=== PATIENT | male | born 1985 | race Two or more races ===

== ENCOUNTER 2016-09-23 18:00 | Inpatient (IN) | payer SELFPAY ==
[2016-09-23] VITALS (7 sets, daily range): BP systolic 81–130; BP diastolic 48–74
[~2016-09-23] VITALS: Ht 177.8 cm; Wt 68.1 kg
[2016-09-23 18:29] LABS: BASO % 1 % (0-3); EOS % 1 % (0-3); HEMOGLOBIN 11.6 g/dL (13.0-17.5); LYMPH # 1.4 x10^3/uL (1.0-4.8); LYMPH % 17 % (24-48); MEAN CORPUSCULAR HEMOGLOBIN 29 pg (25-35); MEAN CORPUSCULAR HGB CONC 34 g/dL (31-37); MEAN CORPUSCULAR VOLUME 86 fL (79-100); MONO % 5 % (0-9); NEUT % 76 % (31-73); PLATELET COUNT 218 x10^3/uL (140-400); RED BLOOD COUNT 3.98 x10^6/uL (4.30-5.70); RED CELL DISTRIBUTION WIDTH 13.3 % (11.5-14.5); WHITE BLOOD COUNT 8.2 x10^3/uL (4.0-11.0)
[2016-09-23] MEDS ORDERED: IV NORMAL SALINE 1000ML BAG 1,000 ML IV ONE ×2 (18:30)
[2016-09-23] MEDS ORDERED: ONDANSETRON PF 4 MG/2 ML VIAL. IV ONE (18:30)
[2016-09-23] MEDS: fentaNYL PF VIAL 100 MCG/2 ML VIAL IV PRN ×3 (18:39→20:41)
[2016-09-23 19:00] LABS: BILIRUBIN,URINE NEGATIVE (NEG); GLUCOSE,URINE >=1000 mg/dL (NEG); NITRITE,URINE NEGATIVE (NEG); PH,URINE 5.5; PROTEIN,URINE NEGATIVE (NEG-TRACE); UROBILINOGEN,URINE 0.2 mg/dL (0.2 mg/dL)
[2016-09-23] MEDS ORDERED: CONTRAST GIVEN MC PRN (19:00)
[2016-09-23 19:01] LABS: ALBUMIN 3.3 g/dL (3.4-5.0); ALBUMIN/GLOBULIN RATIO 0.8 (1.0-1.7); CALCIUM 8.5 mg/dL (8.5-10.1); GFR 38.7; TOTAL BILIRUBIN 0.4 mg/dL (0.2-1.0); TOTAL PROTEIN 7.5 g/dL (6.4-8.2)
[2016-09-23 19:08] LABS: BACTERIA,URINE FEW /HPF (0-FEW); RBC,URINE OCC /HPF (0-2); SQUAMOUS EPITHELIAL CELL,UR FEW /LPF
[2016-09-23 19:13] LABS: POTASSIUM 2.9 mmol/L (3.5-5.1)
[2016-09-23] MEDS ORDERED: IOHEXOL 300 MG/ML 75 ML VIAL IV ONE (19:15)
[2016-09-23] MEDS ORDERED: POTASSIUM CHLORIDE 10MEQ 100 ML IV PRN ×3 (19:15)
[2016-09-23] MEDS ORDERED: INSULIN REGULAR VIAL 150 UNIT in 0.9 % SODIUM CHLORIDE 150ML 150 ML IV PRN (19:15)
[2016-09-23] MEDS ORDERED: IV DEXTROSE 5 %-0.45 % NACL 1,000 ML IV SCH (19:18)
[2016-09-23] MEDS ORDERED: INSULIN,REGULAR 150 UNIT DRIP 150 ML IV ONE (19:30)
[2016-09-23] MEDS: IV NORMAL SALINE 1000ML BAG 1,000 ML IV SCH ×2 (19:58→20:50)
[2016-09-23] MEDS ORDERED: PIPERACILLIN/TAZOBACTAM 4.5 GM in IV NORMAL SALINE 100ML 100 ML IV ONE (20:15)
[2016-09-23] MEDS ORDERED: MORPHINE SULFATE 2 MG/ML DISP.SYRIN. IV PRN (20:15)
[2016-09-23] MEDS ORDERED: ONDANSETRON PF 4 MG/2 ML VIAL. IV PRN (20:15)
[2016-09-23] MEDS ORDERED: ACETAMINOPHEN 325 MG TABLET. PO PRN (20:15)
[2016-09-23] MEDS: IV DEXTROSE 5% - 0.9 % NACL 1,000 ML IV SCH (21:00)
[2016-09-23 21:45] LABS: CALCIUM 7.9 mg/dL (8.5-10.1); CREATININE 1.6 mg/dL (0.7-1.3)
[2016-09-23 21:47] LABS: POTASSIUM 2.7 mmol/L (3.5-5.1)
[2016-09-23] MEDS: POTASSIUM CHLORIDE 10MEQ 100 ML IV SCH ×2 (22:25→23:20)
[2016-09-23 23:25] LABS: CALCIUM 7.8 mg/dL (8.5-10.1); CREATININE 1.7 mg/dL (0.7-1.3); GFR 46.6
[2016-09-23 23:27] LABS: POTASSIUM 2.8 mmol/L (3.5-5.1)
[2016-09-24] VITALS (8 sets, daily range): BP systolic 81–120; BP diastolic 45–77
[2016-09-24] MEDS: POTASSIUM CHLORIDE 10MEQ 100 ML IV SCH ×4 (00:15→03:23)
--- NOTE | 2016-09-24 00:42 | PHYS DOC ---
Past Medical History Past Medical History: Diabetes-Type I Past Surgical History: No Surgical History Alcohol Use: None Drug Use: None Adult General Chief Complaint Chief Complaint: HYPERGLYCEMIA HPI HPI Patient is a 31 year old male who presents with hyperglycemia and vomiting. The patient reports onset of symptoms this morning. Reports 3 episodes of vomiting, polyuria and polydipsia. Reports mid abdominal pain. Denies fevers or chills, hematemesis, diarrhea or constipation, dysuria or hematuria. He has history of type 1 diabetes, takes Lantus and Humalog. Reports compliance with insulin regimen. Blood glucose usually runs in mid 200s. Denies history of abdominal surgeries. His PCP is at a diabetic clinic. Patient is Wolof speaking, accompanied by brother who is providing history. Review of Systems Review of Systems Constitutional: Denies fever or chills Eyes: Denies change in visual acuity HENT: Denies nasal congestion or sore throat Respiratory: Denies cough or shortness of breath Cardiovascular: Denies chest pain GI: Reports abdominal pain, nausea, vomiting, denies bloody stools or diarrhea : Denies dysuria or hematuria Musculoskeletal: Denies back pain or joint pain Integument: Denies rash or skin lesions Neurologic: Denies headache, focal weakness or sensory changes Endocrine: Reports polyuria & polydipsia Current Medications Current Medications Current Medications Medications (Trade) Dose Ordered Sig/Ora Start Time Stop Time Status Last Admin Dose Admin Dextrose/Sodium Chloride 1,000 ml @ 250 mls/hr Q4H 09/23/16 19:18 09/23/16 21:10 DC Fentanyl Citrate (Fentanyl 2ml Vial) 50 mcg PRN Q15MIN PRN 09/23/16 18:30 09/24/16 18:29 09/23/16 20:41 50 MCG Info (Do NOT chart on this entry -- for MONITORING) 1 each PRN DAILY PRN 09/23/16 19:00 09/25/16 18:59 Insulin Human Regular 150 unit/ Sodium Chloride 151.5 ml @ 0 mls/hr CONT PRN PRN 09/23/16 19:15 Iohexol (Omnipaque 300 Mg/ml) 75 ml 1X ONCE 09/23/16 19:15 09/23/16 19:16 DC Ondansetron HCl (Zofran) 4 mg 1X ONCE 09/23/16 18:30 09/23/16 18:31 DC 09/23/16 18:38 4 MG Potassium Chloride 100 ml @ 100 mls/hr PRN Q1HR PRN 09/23/16 19:15 Sodium Chloride 1,000 ml @ 250 mls/hr Q4H 09/23/16 19:18 09/23/16 21:10 DC 09/23/16 19:58 250 MLS/HR Allergies Allergies Allergies Coded Allergies Type Severity Reaction Last Updated Verified No Known Drug Allergies 09/23/16 No Physical Exam Physical Exam Constitutional: Well developed, well nourished, appears ill HENT: Normocephalic, atraumatic, bilateral external ears normal, oropharynx dry , nose normal. Eyes: conjunctiva normal, no discharge. Neck: supple, no stridor. Cardiovascular: RRR, no murmurs, no edema. Lungs & Thorax: LCTAB, no wheezing, no respiratory distress. Abdomen: soft, generalized abdominal tenderness without rebound or guarding, no masses or pulsatile masses, nondistended. Skin: Warm, dry, no erythema, no rash. Back: No tenderness. Extremities: No tenderness, no edema. Neurologic: Alert and oriented X 3, no focal deficits noted. Psychologic: Affect normal, judgement normal, mood normal. Current Patient Data Vital Signs Vital Signs Date Time Temp Pulse Resp B/P (MAP) Pulse Ox O2 Delivery O2 Flow Rate FiO2 09/23/16 19:11 78 13 113/64 (80) 100 Room Air 09/23/16 18:10 97.8 97.8 Lab Values Laboratory Tests Test 09/23/16 18:12 09/23/16 18:20 09/23/16 18:50 Glucose (Fingerstick) 512 mg/dL (70-99) *H White Blood Count 8.2 x10^3/uL (4.0-11.0) Red Blood Count 3.98 x10^6/uL (4.30-5.70) L Hemoglobin 11.6 g/dL (13.0-17.5) L Hematocrit 34.0 % (39.0-53.0) L Mean Corpuscular Volume 86 fL (79-100) Mean Corpuscular Hemoglobin 29 pg (25-35) Mean Corpuscular Hemoglobin Concent 34 g/dL (31-37) Red Cell Distribution Width 13.3 % (11.5-14.5) Platelet Count 218 x10^3/uL (140-400) Neutrophils (%) (Auto) 76 % (31-73) H Lymphocytes (%) (Auto) 17 % (24-48) L Monocytes (%) (Auto) 5 % (0-9) Eosinophils (%) (Auto) 1 % (0-3) Basophils (%) (Auto) 1 % (0-3) Neutrophils # (Auto) 6.3 x10^3uL (1.8-7.7) Lymphocytes # (Auto) 1.4 x10^3/uL (1.0-4.8) Monocytes # (Auto) 0.4 x10^3/uL (0.0-1.1) Eosinophils # (Auto) 0.1 x10^3/uL (0.0-0.7) Basophils # (Auto) 0.0 x10^3/uL (0.0-0.2) Sodium Level 134 mmol/L (136-145) L Potassium Level 2.9 mmol/L (3.5-5.1) *L Chloride Level 96 mmol/L (98-107) L Carbon Dioxide Level 16 mmol/L (21-32) L Anion Gap 22 (6-14) H Blood Urea Nitrogen 17 mg/dL (8-26) Creatinine 2.0 mg/dL (0.7-1.3) H Estimated GFR (Cockcroft-Gault) 38.7 BUN/Creatinine Ratio 9 (6-20) Glucose Level 506 mg/dL (70-99) *H Calcium Level 8.5 mg/dL (8.5-10.1) Phosphorus Level 3.9 mg/dL (2.6-4.7) Magnesium Level 1.9 mg/dL (1.8-2.4) Total Bilirubin 0.4 mg/dL (0.2-1.0) Aspartate Amino Transferase (AST) 8 U/L (15-37) L Alanine Aminotransferase (ALT) 18 U/L (16-63) Alkaline Phosphatase 120 U/L (46-116) H Troponin I Quantitative < 0.017 ng/mL (0.000-0.055) Total Protein 7.5 g/dL (6.4-8.2) Albumin 3.3 g/dL (3.4-5.0) L Albumin/Globulin Ratio 0.8 (1.0-1.7) L Lipase 341 U/L (73-393) Urine Collection Type Unknown Urine Color Straw Urine Clarity Clear Urine pH 5.5 Urine Specific [place] 1.025 Urine Protein Negative mg/dL (NEG-TRACE) Urine Glucose (UA) >=1000 mg/dL (NEG) Urine Ketones (Stick) >=80 mg/dL (NEG) Urine Blood Negative (NEG) Urine Nitrite Negative (NEG) Urine Bilirubin Negative (NEG) Urine Urobilinogen Dipstick 0.2 mg/dL (0.2 mg/dL) Urine Leukocyte Esterase Negative (NEG) Urine RBC Occ /HPF (0-2) Urine WBC 1-4 /HPF (0-4) Urine Squamous Epithelial Cells Few /LPF Urine Bacteria Few /HPF (0-FEW) Urine Mucus Slight /LPF Laboratory Tests 09/23/16 18:20 Laboratory Tests 09/23/16 18:20 EKG EKG interpreted by me: NSR rate 88, no acute ST/T wave changes, QTc prolonged 490 ms, no ectopy.[] Radiology/Procedures Radiology/Procedures [] Course & Med Decision Making Course & Med Decision Making Pertinent Labs and Imaging studies reviewed. (See chart for details) The patient presents with hyperglycemia. Gave IV fluids and Zofran. Obtained labs, UA, and EKG. Patient found to have diabetic ketoacidosis with hyperglycemia, anion gap acidosis, ketonuria. Received total of 2 L of normal saline. Initiated EKG protocol including insulin drip and potassium replacement. Recommended admission to the hospital for ongoing treatment. The patient agreed with plan of care. Discussed with Dr. Conley who agrees to admit to inpatient status to the ICU. The patient is being admitted in guarded condition. Critical care time: 35 minutes [] Dragon Disclaimer Dragon Disclaimer This electronic medical record was generated, in whole or in part, using a voice recognition dictation system. Departure Departure Impression: Primary Impression: Diabetic ketoacidosis Additional Impressions: Nausea and vomiting Hypokalemia Disposition: ADMITTED INPATIENT Admitting Physician: Errol Conley Condition: GUARDED Problem Qualifiers JANICE OLIVARES MD Sep 24, 2016 00:41
[2016-09-24] MEDS ORDERED: INSULIN DETEMIR 300 UNITS/3 ML INSULN.PEN. SQ ONE (00:45)
[2016-09-24] MEDS: IV DEXTROSE 5% - 0.9 % NACL 1,000 ML IV SCH ×2 (01:11→05:15)
[2016-09-24 01:30] LABS: CALCIUM 7.5 mg/dL (8.5-10.1); CREATININE 1.5 mg/dL (0.7-1.3); GFR 53.9; POTASSIUM 3.1 mmol/L (3.5-5.1)
[2016-09-24 01:34] LABS: MAGNESIUM 1.6 mg/dL (1.8-2.4); PHOSPHORUS 2.6 mg/dL (2.6-4.7)
[2016-09-24] MEDS ORDERED: MAGNESIUM SULFATE 4GM 100 ML IV ONE (02:30)
[2016-09-24] MEDS ORDERED: SODIUM PHOSPHATE 20 MMOL in IV DEXTROSE 5% 250 ML IV ONE (02:30)
[2016-09-24 03:48] LABS: CALCIUM 7.3 mg/dL (8.5-10.1); CREATININE 1.4 mg/dL (0.7-1.3); GFR 58.4; POTASSIUM 3.2 mmol/L (3.5-5.1)
--- NOTE | 2016-09-24 04:41 | ACF ---
Admission Forms Criteria GENERAL ADMISSION CRITERIA (Place 'X' for any and all applicable criteria): Admission is indicated for ANY ONE of the following: [ ]I. Hemodynamic instability as indicated by ANY ONE of the following(1)(2) (3)(4)(5): [ ]a) Vital sign abnormality not readily corrected by appropriate treatment within 12 to 24 hours indicated by ANY ONE of the following: [ ]i) Hypotension [ ]ii) Symptomatic Tachycardia unresponsive to treatment (eg , analgesia, fluids, sedation as indicated) [ ]iii) Orthostatic vital sign changes unresponsive to treatment (eg, fluids) [ ]b) Vital sign abnormality that is severe indicated by ANY ONE of the following: [ ]i) Inadequate perfusion indicated by ANY ONE of the following: [ ]1) Lactic acidosis (greater than 2 mmol/L) [ ]2) New abnormal capillary refill (greater than 3 seconds) [ ]3) Other metabolic acidosis (arterial pH less than 7.35) not otherwise explained [ ]4) Reduced urine output [ ]5) Altered mental status [ ]6) Myocardial Ischemia [ ]v) Mean arterial pressure[A] less than 60 mm Hg [ ]vi) Mean arterial pressure[A] less than 70 mm Hg after 30 minutes of appropriate treatment (eg, fluid resuscitation) [ ]vii) IV inotropic or vasopressor medication required to maintain adequate blood pressure or perfusion [ ]viii) Sustained heart rate greater than 120 beats per minute in adult or child 6 years or older[B]] [ ]II. Hypertension requiring inpatient treatment as indicated by ANY ONE of the following(6)(7)(8): [ ]a) SBP greater than 220 mm Hg or DBP greater than 120 mm Hg despite treatment [ ]b) SBP greater than 140 mm Hg or DBP greater than 100 mm Hg with evidence of acute end organ damage as indicated by ANY ONE of the following: [ ]i) Encephalopathy [ ]ii) Acute renal failure as indicated by new onset of ANY ONE of the following(9)(10)(11)(12)(13): [ ]1) A 3-fold rise in serum creatinine from baseline [ ]2) Serum creatinine greater than 4 mg/dL ( 354 micromoles/L) with acute rise greater than 0.5 mg/dL (44.2 micromoles/L) [ ]3) Reduction of more than 75% in estimated glomerular filtration rate from baseline [ ]4) Estimated glomerular filtration rate less than 35 mL/min/1.73m2 (0.59 mL/sec/1.73m2) in child up to 18 years of age [ ]5) Cessation of urine output indicated by ALL of the following: [ ]A. Adequate volume status [ ]B. Inadequate urine output as indicated by ANY ONE of the following: [ ]a. Urine output less than 0.3 mL/kg/hr for 24 hours [ ]b. Anuria (urine output less than 0.1 mL/kg/hr) for 12 hours [ ]iii) Aortic dissection [ ]iv) Myocardial ischemia [ ]v) Left ventricular heart failure [ ]vi) Retinal hemorrhage [ ]vii) Other significant finding [ ]c) Hypertension in child requiring inpatient treatment as indicated by ALL of the following(14)(15)(16): [ ]i) Outpatient treatment not effective, not available, or not appropriate [ ]ii) SBP or DBP greater than 95th percentile for age [ ]iii) Evidence of acute end organ damage as indicated by ANY ONE of the following: [ ]1) Altered mental status [ ]2) Acute renal failure as indicated by new onset of ANY ONE of the following(9)(10)(11)(12)(13): [ ]A. A 3-fold rise in serum creatinine from baseline [ ]B. Serum creatinine greater than 4 mg/dL (354 micromoles/L) with acute rise greater than 0.5 mg/dL (44.2 micromoles/L) [ ]C. Reduction of more than 75% in estimated glomerular filtration rate from baseline [ ]D. Estimated glomerular filtration rate less than 35 mL/min/1.73m2 (0.59 mL/sec/1.73m2)in child up to 18 years of age [ ]E. Cessation of urine output indicated by ALL of the following: [ ]a. Adequate volume status [ ]b. Inadequate urine output as indicated by ANY ONE of the following: [ ]1) Urine output less than 0.3 mL/kg/hr for 24 hours [ ]2) Anuria (urine output less than 0.1 mL/kg/hr) for 12 hours [ ]3) Severe headache [ ]4) Visual disturbance [ ]5) Retinal hemorrhage [ ]6) Other significant finding [ ]III. Acute cardiac or peripheral ischemia as indicated by ANY ONE of the following: [ ]a) Acute coronary syndrome(17)(18) [ ]b) Acute peripheral ischemia (eg, pulseless, cool, mottled, or cyanotic extremity)(19) [ ]IV. Cardiac arrhythmias or findings of immediate concern indicated by ANY ONE of the following(20)(21): [ ]a) Heart rhythms that are inherently dangerous or unstable indicated by ANY ONE of the following(22)(23)(24): [ ]i) Resuscitated ventricular fibrillation or cardiac arrest [ ]ii) Ventricular escape rhythm [ ]iii) Sustained ventricular tachycardia (30 seconds or more of ventricular rhythm at greater than 100 beats per minute) [ ]iv) Nonsustained ventricular tachycardia and ANY ONE of the following: [ ]1) Suspected cardiac ischemia as cause or consequence of ventricular tachycardia [ ]2) In setting of acute myocarditis [ ]b) Unstable cardiac conduction defects indicated by ANY ONE of the following(24)(25)(26): [ ]i) Type II second-degree atrioventricular block [ ]ii) Third-degree atrioventricular block [ ]iii) New-onset left bundle branch block with suspected myocardial ischemia [ ]c) Any heart rhythm and ANY ONE of the following(22)(23)(27)(28)( 29): [ ] i) Continuous long-term ECG monitoring needed (eg, initiation of drug requiring monitoring for more than 24 hours) [ ] ii) Patient has automatic implanted cardioverter defibrillator that is repeatedly firing, malfunctioning, or in need of immediate adjustment of settings beyond the scope of ambulatory or observation care. [ ]d) Heart rhythms of concern due to ANY ONE of the following: [ ]i) Hypotension [ ]ii) Respiratory distress [ ]iii) Association with other significant symptoms (eg, bradycardia with syncope or ongoing dizziness, supraventricular tachycardia with chest pain) (27)(28) (30) [ ] V. Severe heart failure as indicated by ANY ONE of the following ( 31)(32): [ ]a) Respiratory distress [ ]b) Hypotension [ ]c) Anasarca (refractory to outpatient therapy) [ ]d) Cardiac arrhythmias of immediate concern [ ]e) Myocardial ischemia [ ]. Respiratory abnormalities, including ANY ONE of the following(33)(34) (35)(36): [ ]a) Respiratory rate greater than 30 breaths per minute unresponsive to treatment [A] [ ]b) New saturation of arterial oxygen less than 90% [ ]c) New partial pressure of carbon dioxide greater than 44 mm Hg ( 5.9 kPa) [ ]d) Supplemental oxygen or respiratory treatments needed that are new or not performable at other levels of care [ ]e) New-onset cyanosis [ ]f) Inability to protect airway [ ]g) Chronic lung disease with severe deterioration (not responsive to emergency and observation care treatment as appropriate) as indicated by ANY ONE of the following(34)(36 ): [ ]i) SaO2 5% below baseline in patient with chronic hypoxemia [ ]ii) New requirement for supplemental oxygen to keep SaO2 at baseline or acceptable level [ ]iii) Required supplemental oxygen performable only in acute inpatient setting [ ]iv) Severe airflow or ventilation abnormalities [ ]v) Previously mobile patient unable to walk between rooms [ ]vi Inability to eat or sleep due to dyspnea [ ]vii) Rapid rate of exacerbation onset [ ]viii) Altered mental status ]VII. Severe airflow or ventilation abnormalities (not responsive to emergency and observation care treatment as appropriate) as indicated by ANY ONE of the following(33)(34)(35)(37): [ ]a) PCO2 greater than 42 mm Hg (5.6 kPa) and pH less than 7.35 (new ) [ ]b) Documented PCO2 increased more than 5 mm Hg (0.7 kPa) from disease baseline [ ]c) Airflow measurements [B] less than 60% of previous best or predicted (eg, peak expiratory flow rate less than 300 L/minute) despite intensive emergent treatment [C] [ ]d) Required respiratory treatments that are performable only in acute inpatient setting [ ]VIII. Impending or actual respiratory arrest ( Also use Respiratory Failure GRG for severe respiratory disease and long-term mechanical ventilation patients) [ ]IX. Neurologic abnormalities, including ANY ONE of the following: [ ]a) New findings that suggest ANY ONE of the following: [ ]i) ROLL CONTOUR GRINDER infection(38) [ ]ii) Cerebral bleeding, ischemia, or vasospasm(39)(40) [ ]iii) Increased intracranial pressure, hydrocephalus, or cerebral edema(41)(42)(43) [ ]iv) Spinal cord injury(44) [ ]b) Uncontrolled seizures(45) [ ]c) New-onset coma (eg, Sharad coma scale score less than 9) or unexplained abnormal mental status (eg, Sharad coma scale score less than 14) [D](41)(46)(47) [ ]X. New-onset severe neurologic findings requiring inpatient care; examples include(42)(48)(49): [ ]a) Papilledema [ ]b) Cerebral edema [ ]c) Mass effect on CT scan [ ]XI. Suspected acute intra-abdominal process with peritoneal signs, abdominal mass, or similar findings (50)(51)(52) [X ]XII. Severe physiologic disorder remaining after emergency or observation level care (as appropriate) as indicated by ANY ONE of the following (53): [ ]a) Significant dehydration [X ]b) Diabetic ketoacidosis [ ]c) Hyperglycemic hyperosmolar state (eg, osmolality greater than 320 mOsm/kg (mmol/kg) [ ]d) Hypoglycemia [ ]e) Other (new) acid-base disorder with pH less than 7.35 or greater than 7.5(54) [ ]f) Thyroid storm (55) [ ]g) Myxedema coma (55) [ ]XIII. Abdominal abnormalities with ANY ONE of the following(56)(57): [ ]a) Absent bowel sounds with complete ileus [ ]b) Signs of intestinal obstruction or peritonitis [E] [ ]c) Nausea and vomiting that cannot be controlled with outpatient or observation care [ ]XIV. Acute renal failure as indicated by new onset of ANY ONE of the following(9)(10)(11)(12)(13): [ ]a) A 3-fold rise in serum creatinine from baseline [ ]b) Serum creatinine greater than 4 mg/dL (354 micromoles/L) with acute rise greater than 0.5 mg/dL (44.2 micromoles/L) [ ]c) Reduction of more than 75% in estimated glomerular filtration rate from baseline [ ]d) Estimated glomerular filtration rate less than 35 mL/min/ 1.73m2 (0.59 mL/sec/1.73m2) in child up to 18 years of age [ ]e) Cessation of urine output indicated by ALL of the following: [ ]i) Adequate volume status [ ]ii) Inadequate urine output as indicated by ANY ONE of the following: [ ]1) Urine output less than 0.3 mL/kg/hr for 24 hours [ ]2) Anuria (urine output less than 0.1 mL/kg/hr) for 12 hours [ ]XV. Significant uremic complications as indicated by ANY ONE of the following(58)(59)(60): [ ]a) Outpatient therapy is ineffective or not feasible for ANY ONE of the following: [ ]i) Severe heart failure [ ]ii) Severehypertension [ ]iii) Pleural effusion [ ]iv) Pericarditis or pericardial effusion [ ]b) Cardiac arrhythmias of immediate concern [ ]c) Intractable nausea or vomiting [ ]d) Recurrent seizures [ ]e) Encephalopathy [ ]f) Bleeding abnormalities (eg, platelet dysfunction) with active (eg, gastrointestinal) bleeding [ ]g) Dialysis indicated before long-term access or ambulatory arrangements can be made [ ]h) Significant metabolic or electrolyte abnormalities (eg, severe acidosis or hyperkalemia) [ ]XVI. High fever or other high-risk infection situation as indicated by ANY ONE of the following(61)(62)(63)(64): [ ]a) Outpatient and observation care antimicrobial treatment unavailable, not effective, or not appropriate [ ]b) Documented bacteremia [ ]c) Temperature greater than 40.5 degrees C (104.9 degrees F) ( oral) [ ]d) Temperature greater than 39.5 degrees C (103.1 degrees F) ( oral) or less than 36 degrees C (96.8 degrees F) (rectal) that does not respond to e treatment and observation care [ ] XVII. Temperature less than 95 degrees F (35 degrees C)(rectal)(65) [ ] XVIII. Severe nutritional abnormalities as indicated by ALL of the following (66)(67): [ ]a) Inability to tolerate or establish sufficient oral or other enteral nutrition in outpatient setting [ ]b) Parenteral nutrition regimen need that must be implemented on inpatient basis [ ] XIX. Severe electrolyte abnormalities indicated by ALL of the following(68) (69)(70): [ ]a) Electrolytes and associated findings are not as expected for patient baseline or acceptable treatment effects. [ ]b) Severe abnormalities indicated by ANY ONE of the following: [ ]i) Sodium less than 130 mEq/L (mmol/L) (new) [ ]ii)Sodium less than 135 mEq/L (mmol/L) with ANY ONE of the following: [ ]1) Uncorrectable (to near normal or chronic baseline) after trial of outpatient and emergency treatment [ ]2) Altered mental status [ ]3) Seizures [ ]4) Severe medical etiology requiring inpatient management (eg, heart failure, hypovolemia) [ ]iii) Sodium greater than 155 mEq/L (mmol/L) [ ]iv) Sodium greater than 150 mEq/L (mmol/L) with ANY ONE of the following: [ ]1) Uncorrectable (to near normal or chronic baseline) with outpatient and emergency treatment [ ]2) Altered mental status [ ]3) Seizures [ ]4) Severe medical etiology (eg, hypovolemia, diabetes insipidus) [ ]v) Potassium less than 2.5 mEq/L (mmol/L) despite outpatient and emergency treatment [ ]vi) Potassium less than 3 mEq/L (mmol/L) with ANY ONE of the following: [ ]1) Weakness [ ]2) Cardiac abnormality (eg, arrhythmia, conduction disturbance) [ ]3) Cardiac ischemia [ ]4) Ileus [ ]5) Ongoing medical cause requiring inpatient management (eg, acute renal wasting or SIADH) [ ]6) Other severe symptoms [ ]vii) Potassium greater than 6.5 mEq/L (mmol/L) [ ]viii) Potassium greater than 5 mEq/L (mmol/L) with ANY ONE of the following: [ ]1) Uncorrectable (to near normal or chronic baseline) with outpatient and emergency treatment [ ]2) Severe ECG findings [F] [ ]3) Acute worsening of renal failure (creatinine greater than 2.5 mg/dL (221 micromoles/L) or significant elevation for age and size) [ ]4) Severe weakness [ ]5) Severe medical etiology (eg, hemolysis, infection, drug overdose) [ ]ix) Calcium less than 7 mg/dL (1.75 mmol/L) despite outpatient and emergency treatment (72) [ ]x) Calcium less than 8 mg/dL (2 mmol/L) with significant symptoms or findings; examples include(72): [ ]1) Altered mental status [ ]2) Muscle spasms [ ]3) Seizures [ ]4) Breathing difficulty [ ]5) Cardiac abnormality (eg, arrhythmia or conduction disturbance) [ ]xi) Calcium greater than 14 mg/dL (3.5 mmol/L)(72) [ ]xii) Calcium greater than 12 mg/dL (3 mmol/L) with ANY ONE of the following(72): [ ]1) Uncorrectable (to near normal or chronic baseline) with outpatient and emergency treatment [ ]2) Significant dehydration or hypovolemia as indicated by ALL of the following(70)(73)(74): [ ]A. Not resolved with initial treatments [ ]B. Clinically significant dehydration as indicated by ANY ONE of the following: [ ]a. Vomiting refractory to outpatient treatment (ie, precluding oral rehydration) [ ]b. Inability to drink [ ]c. Hypernatremia or other electrolyte abnormality unable to be corrected with outpatient and emergency treatment [ ]d. Failure to remain hydrated with outpatient therapy [ ]e. Reduced urine output [ ]f. Hypotension [ ]g. Serious cause for dehydration requiring acute hospitalization (eg, bowel obstruction, increased intracranial pressure, infectious cause) [ ]h. Child with ANY ONE of the following(75): [ ]1) Severe abdominal tenderness [ ]2) Adequate care not available at home [ ]3) Severe dehydration ( greater than 9% loss of body weight) [ ]4) Significant symptoms or findings; examples include: [ ]A. Altered mental status [ ]B. Cardiac abnormality (eg, arrhythmia, conduction disturbance) [ ]C. Malignant etiology requiring inpatient treatment [ ]xiii) Phosphorus less than 1 mg/dL (0.32 mmol/L) [ ]xiv) Phosphorus less than 1.5 mg/dL (0.48 mmol/L) with ANY ONE of the following: [ ]1) Patient unresponsive to outpatient and emergency treatment [ ]2) Significant symptoms or findings; examples include: [ ]A. Weakness [ ]B. Altered mental status [ ]C. Breathing difficulty [ ]D. Seizures [ ]E. Rhabdomyolysis [ ]xv) Phosphorus greater than 10 mg/dL (3.2 mmol/L) [ ]xvi) Phosphorus greater than 4.5 mg/dL (1.45 mmol/L) (new) with ANY ONE of the following: [ ]1) Severe medical etiology (eg, crush injury, acute renal failure) [ ]2) Associated hypocalcemia with significant findings; examples include: [ ]A. Neurologic symptoms [ ]B. Altered mental status [ ]C. Muscle spasms [ ]D. Seizures [ ]E. Breathing difficulty [ ]F. Cardiac abnormality (eg, arrhythmia, conduction disturbance) [ ]xvii) Magnesium less than 1 mg/dL (0.41 mmol/L) [ ]xviii) Magnesium less than 1.5 mg/dL (0.62 mmol/L) with ANY ONE of the following: [ ]1) Patient unresponsive to outpatient and emergency treatment [ ]2) Associated hypocalcemia with significant findings; examples include: [ ]A. Altered mental status [ ]B. Muscle spasms [ ]C. Seizures [ ]D. Breathing difficulty [ ]E. Cardiac abnormality (eg, arrhythmia , conduction disturbance) [ ]3) Associated hypokalemia (potassium less than 3 mEq/L (mmol/L)) with risk of arrhythmia [ ]xix) Magnesium greater than 4 mEq/L (2 mmol/L) [ ]xx) Magnesium greater than 2.5 mEq/L (1.25 mmol/L) with significant symptoms or findings; examples include: [ ]1) Weakness [ ]2) Altered mental status [ ]3) Cardiac abnormality (eg, arrhythmia, conduction disturbance) [ ]4) Breathing difficulty [ ]5) Severe medical etiology (eg, renal failure, hypovolemia) [ ]xxi) Uric acid greater than 20 mg/dL (1190 micromoles/L)(76) [ ]xxii) Uric acid greater than 8 mg/dL (476 micromoles/L) with significant symptoms or findings of tumor lysis syndrome; examples include(76): [ ]1) Creatinine greater than 1.5 times upper limit of normal [ ]2) Cardiac abnormality (eg, arrhythmia, conduction disturbance) [ ]3) Seizure [ ]XX. Acute blood loss causing significant abnormality as indicated by ANY ONE of the following(77)(78): [ ]a) Hemoglobin less than 10 g/dL (100 g/L) (not baseline) [ ]b) Hematocrit less than 30% (0.30) (not baseline) [ ]c) Repeat hematocrit decreased more than 2% (0.02) [ ]d) Uncontrolled bleeding [ ]XXI. Severe anemia indicated by ANY ONE of the following(78)(79): [ ]a) Altered mental status [ ]b) Chest pain [ ]c) Exertional dyspnea [ ]d) Syncope [ ]e) Other findings suggesting inadequate perfusion [ ]f) Treatment with transfusion or volume replacement is ineffective at resolving ANY ONE of the following [G]: [ ]i) Tachycardia for age [ ]ii) Orthostatic vital sign changes as indicated by ANY ONE of the following(80): [ ]1) Fall in SBP of 20 mm Hg or more 1 to 3 minutes after patient sits or stands from recumbent position [ ]2) Fall in DBP of 10 mm Hg or more 1 to 3 minutes after patient sits or stands from recumbent position [ ]XXII. High-risk low platelet count as indicated by ANY ONE of the following( 81)(82): [ ]a) Severe or life-threatening bleeding (eg, intracranial, major gastrointestinal, or extensive mucosal bleeding), with any reduced platelet count [ ]b) Platelet count less than 20,000/mm3 (20 x109/L) with any active bleeding [ ]c) Platelet count less than 10,000/mm3 (10 x109/L) with minor purpura or petechiae [ ]d) Platelet count less than 5000/mm3 (5 x109/L) [ ]e) Low platelet count with hemolytic anemia [ ]XXIII. Disseminated intravascular coagulation(77)(83) [ ]XXIV. Severe adverse drug or systemic toxin reaction requiring inpatient treatment; examples include(84)(85): [ ]a) Serotonin syndrome(86) [ ]b) Neuroleptic malignant syndrome(86) [ ]c) Cholinergic syndrome with severe symptoms (eg, bronchorrhea, weakness, mental status changes, seizures) [ ]d) Sympathetic syndrome with severe symptoms (eg, seizures, mental status changes, cardiac dysrhythmias) [ ]e) Anticholinergic syndrome [ ]XXV. Severe pain requiring acute inpatient management as indicated by ALL of the following (87)(88)(89): [ ]a) Continuous or frequent (eg, every 2 to 4 hours) parenteral analgesics required [H] [ ]b) Rapid improvement expected from treatment or acute intervention (eg, surgery, anesthesia procedure) [ ]XXVI.Severe behavioral health issues judged unmanageable at a lower level of care (eg, residential) in a patient who is ANY ONE of the following(91) [ ]a) Acutely suicidal [ ]b) A danger to self (eg, self-mutilating or suicidal behavior) [ ]c) A danger to others (eg, assaultive or homicidal behavior) [ ]d) Incapacitated because of grave disability (eg, inability to provide for self at lower level of care) (92) [ ]XXVII. Inpatient monitoring needed; examples include(1)(3)(87)(93)(94)(95)(96 ): [ ]a) Vital signs, neurologic signs, or vascular checks more frequently than every 4 hours [ ]b) Cardiac or respiratory monitoring beyond the scope (eg, over 24 hours) of observation care [ ]c) Pulmonary artery catheter monitoring [ ]d) Suspected compartment syndrome(97) (98) [ ]e) Cerebral bleeding, hydrocephalus, or vasospasm monitoring [ ]f) Increased intracranial pressure or cerebral edema monitoring [ ]g) monitoring [ ]XXVIII. Treatment requiring inpatient care; examples include: [ ]a) IV fluid to replace significant ongoing losses (greater than 3 L/m2 per day)(53) [ ]b) High concentration oxygen (greater than 40%)(33)(99)(100) [ ]c) Frequent respiratory therapy (more frequently than every 4 hours) to maintain airflow rates greater than 60% of baseline(33)(99)(100) [ ]d) Epidural analgesia(87) [ ]e) IV anticoagulation, vasoactive, or antiarrhythmic medication(19 )(23) [ ]f) Acute thrombolytics (generally require 24 hours of observation )(101)(102) [ ]XXIX. Emergency procedures needed; examples include: [ ]a) Emergency inpatient surgery [ ]b) Temporary pacemaker placement(103) [ ]c) Chest tube placement with active evacuation (eg, suction, drainage)(104) [ ]d) Emergent cardioversion(105) [ ]e) Emergent cardiac or vascular procedures (eg, cardiac catheterization, angioplasty) (17)(18) [ ]f) Emergent dialysis access placement and institution(10)(106) [ ]g) Emergent pericardiocentesis(107) [ ]h) Emergent plasmapheresis or leukapheresis(83) [ ]i) Emergent tracheostomy The original [employer] content created by [employer] has been revised. The portions of the content which have been revised are identified through the use of italic text or in bold, and [email or web address] has neither reviewed nor approved the modified material. All other unmodified content is copyright [employer]. Please see references footnoted in the original [employer] edition 2016 Admission Criteria Met?: Yes HEIKE QUEZADA Sep 24, 2016 04:41
[2016-09-24 05:59] LABS: CALCIUM 7.2 mg/dL (8.5-10.1); CREATININE 1.3 mg/dL (0.7-1.3); GFR 63.6; POTASSIUM 3.2 mmol/L (3.5-5.1)
[2016-09-24] MEDS ORDERED: IV NORMAL SALINE 1000ML BAG 1,000 ML IV ONE ×2 (06:00)
[2016-09-24] MEDS: IV DEXTROSE 5 %-0.45 % NACL 1,000 ML IV SCH ×5 (06:00→21:25)
[2016-09-24] MEDS ORDERED: DEXTROSE 50% 25 GM / 50ML DISP.SYRIN. IV PRN (06:15)
[2016-09-24] MEDS ORDERED: POTASSIUM CHLORIDE 20 MEQ TABLET.ER. PO ONE ×3 (06:15→16:00)
[2016-09-24 07:07] LABS: BASO % 0 % (0-3); EOS % 1 % (0-3); HEMATOCRIT 27.7 % (39.0-53.0); HEMOGLOBIN 9.3 g/dL (13.0-17.5); LYMPH % 26 % (24-48); MEAN CORPUSCULAR HEMOGLOBIN 29 pg (25-35); MEAN CORPUSCULAR HGB CONC 34 g/dL (31-37); MEAN CORPUSCULAR VOLUME 87 fL (79-100); MONO % 9 % (0-9); NEUT % 63 % (31-73); PLATELET COUNT 146 x10^3/uL (140-400); RED BLOOD COUNT 3.19 x10^6/uL (4.30-5.70); RED CELL DISTRIBUTION WIDTH 13.4 % (11.5-14.5); WHITE BLOOD COUNT 7.6 x10^3/uL (4.0-11.0)
[2016-09-24 07:23] LABS: CALCIUM 6.8 mg/dL (8.5-10.1); CREATININE 1.2 mg/dL (0.7-1.3); GFR 69.7
[2016-09-24 07:30] LABS: POTASSIUM 2.8 mmol/L (3.5-5.1)
[2016-09-24] MEDS: INSULIN ASPART 300 UNITS/3 ML INSULN.PEN SQ SCH ×6 (08:00→17:57)
--- NOTE | 2016-09-24 14:43 | EKG ---
[facility] [address] [place] [address] Test Date: 2016-09-23 Test Time: 18:29:44 Pat Name: THEA DONALDSON Department: Room: Gender: M [employer]: : 1985 Requested By: JANICE OLIVARES Order Number: [id number] Reading MD: Measurements Intervals [place] Rate: P: OR: QRS: QRSD: T: QT: QTc: Interpretive Statements No previous ECG available for comparison
--- NOTE | 2016-09-24 15:35 | HP ---
ADMIT DATE: 09/24/2016 CHIEF COMPLAINT: Hyperglycemia. HISTORY OF PRESENT ILLNESS: The patient is a pleasant 31-year-old male who is noncompliant with his diabetic meds, basically presented with DKA, has had anion gap acidosis. We admitted him to the ICU with the DKA protocol, this morning is being examined in the ICU. PAST MEDICAL HISTORY: Diabetes and noncompliance. ALLERGIES: None. FAMILY HISTORY: Diabetes. SOCIAL HISTORY: Does not drink, smoke or take drugs. He claims he goes to a clinic at ____ [facility]. MEDICATIONS: Reviewed. REVIEW OF SYSTEMS: GENERAL: No history of weight change, weakness or fevers. SKIN: No bruising, hair changes or rashes. EYES: No blurred, double or loss of vision. NOSE AND THROAT: No history of nosebleeds, hoarseness or sore throat. HEART: No history of palpitations, chest pain or shortness of breath on exertion. LUNGS: Denies cough, hemoptysis, wheezing or shortness of breath. GASTROINTESTINAL: Denies changes in appetite, nausea, vomiting, diarrhea or constipation. GENITOURINARY: No history of frequency, urgency, hesitancy or nocturia. NEUROLOGIC: Denies history of numbness, tingling, tremor or weakness. PSYCHIATRIC: No history of panic, anxiety or depression. ENDOCRINE: No history of heat or cold intolerance, polyuria or polydipsia. EXTREMITIES: Denies muscle weakness, joint pain, pain on walking or stiffness. PHYSICAL EXAMINATION: VITAL SIGNS: Temperature afebrile, pulse 92, respirations 18, blood pressure 91/54. GENERAL: He is awake, seems weak, a little depressed. HEART: Normal S1, S2. LUNGS: Clear. ABDOMEN: Soft, positive bowel sounds. EXTREMITIES: No edema. SKIN: No rashes. PSYCHIATRIC: He is depressed. VASCULAR: Good capillary refill. ENDOCRINE: No thyromegaly. LYMPHATICS: No cervical nodes. HEMATOPOIETIC: No bruising. LABORATORY DATA: White count 7, hemoglobin 9, platelets 146. Anion gap is 11, but it was 21 when he arrived. ASSESSMENT AND PLAN: Resolving diabetic ketoacidosis. As previously stated, we had him on the DKA protocol including IV insulin, IV fluids. We are now going to change him to NovoLog 10 units t.i.d. with meals and Lantus 20 units at night time, try to advance his diet. Continue home medicines. SAUL MENDOZA DO DR: GARY/masha JOB#: [id number] / [id number]
[2016-09-24] MEDS ORDERED: INSULIN DETEMIR 300 UNITS/3 ML INSULN.PEN. SQ SCH (21:00)
[2016-09-25 02:40] VITALS: BP 108/75
[2016-09-25] MEDS: IV DEXTROSE 5 %-0.45 % NACL 1,000 ML IV SCH ×2 (03:17→06:25)
--- NOTE | 2016-09-25 06:20 | EKG ---
[facility] [address] [place] [address] Test Date: 2016-09-23 Test Time: 18:32:58 Pat Name: THEA DONALDSON Department: Room: 3 Gender: M Entry Level [employer]: : 1985 Requested By: SAUL MENDOZA Order Number: [id number] Reading MD: Measurements Intervals [place] Rate: 88 P: 26 CA: 140 QRS: 16 QRSD: 106 T: 59 QT: 402 QTc: 490 Interpretive Statements SINUS RHYTHM PROLONGED QT NO SPECIFIC ECG ABNORMALITIES RI6.01 No previous ECG available for comparison
[2016-09-25 07:43] VITALS: BP 117/70
[2016-09-25] MEDS: INSULIN ASPART 300 UNITS/3 ML INSULN.PEN SQ SCH ×4 (08:00→12:00)
[2016-09-25] MEDS ORDERED: INSU100I17 SQ (08:59)
[2016-09-25] MEDS ORDERED: INSU100V13 SQ (08:59)
--- NOTE | 2016-09-25 09:01 | PDOC3 ---
Discharge Summary Visit Information Date of Admission: Sep 23, 2016 Date of Discharge: Sep 25, 2016 Final Diagnosis Problems Medical Problems: (1) Diabetic ketoacidosis Status: Acute (2) Hypokalemia Status: Acute (3) Nausea and vomiting Status: Acute Brief Hospital Course Allergies Allergies Coded Allergies Type Severity Reaction Last Updated Verified No Known Drug Allergies 09/23/16 No Vital Signs Vital Signs Date Time Temp Pulse Resp B/P (MAP) Pulse Ox O2 Delivery O2 Flow Rate FiO2 09/25/16 08:00 Room Air 09/25/16 07:43 98.1 72 18 117/70 (86) 97 98.1 Lab Results Laboratory Tests Test 09/23/16 18:12 09/23/16 18:20 09/23/16 18:50 09/23/16 19:52 Glucose (Fingerstick) 512 mg/dL (70-99) 271 mg/dL (70-99) White Blood Count 8.2 x10^3/uL (4.0-11.0) Red Blood Count 3.98 x10^6/uL (4.30-5.70) Hemoglobin 11.6 g/dL (13.0-17.5) Hematocrit 34.0 % (39.0-53.0) Mean Corpuscular Volume 86 fL (79-100) Mean Corpuscular Hemoglobin 29 pg (25-35) Mean Corpuscular Hemoglobin Concent 34 g/dL (31-37) Red Cell Distribution Width 13.3 % (11.5-14.5) Platelet Count 218 x10^3/uL (140-400) Neutrophils (%) (Auto) 76 % (31-73) Lymphocytes (%) (Auto) 17 % (24-48) Monocytes (%) (Auto) 5 % (0-9) Eosinophils (%) (Auto) 1 % (0-3) Basophils (%) (Auto) 1 % (0-3) Neutrophils # (Auto) 6.3 x10^3uL (1.8-7.7) Lymphocytes # (Auto) 1.4 x10^3/uL (1.0-4.8) Monocytes # (Auto) 0.4 x10^3/uL (0.0-1.1) Eosinophils # (Auto) 0.1 x10^3/uL (0.0-0.7) Basophils # (Auto) 0.0 x10^3/uL (0.0-0.2) Sodium Level 134 mmol/L (136-145) Potassium Level 2.9 mmol/L (3.5-5.1) Chloride Level 96 mmol/L (98-107) Carbon Dioxide Level 16 mmol/L (21-32) Anion Gap 22 (6-14) Blood Urea Nitrogen 17 mg/dL (8-26) Creatinine 2.0 mg/dL (0.7-1.3) Estimated GFR (Cockcroft-Gault) 38.7 BUN/Creatinine Ratio 9 (6-20) Glucose Level 506 mg/dL (70-99) Calcium Level 8.5 mg/dL (8.5-10.1) Phosphorus Level 3.9 mg/dL (2.6-4.7) Magnesium Level 1.9 mg/dL (1.8-2.4) Total Bilirubin 0.4 mg/dL (0.2-1.0) Aspartate Amino Transf (AST/SGOT) 8 U/L (15-37) Alanine Aminotransferase (ALT/SGPT) 18 U/L (16-63) Alkaline Phosphatase 120 U/L (46-116) Troponin I Quantitative < 0.017 ng/mL (0.000-0.055) Total Protein 7.5 g/dL (6.4-8.2) Albumin 3.3 g/dL (3.4-5.0) Albumin/Globulin Ratio 0.8 (1.0-1.7) Lipase 341 U/L (73-393) Urine Collection Type Unknown Urine Color Straw Urine Clarity Clear Urine pH 5.5 Urine Specific [place] 1.025 Urine Protein Negative mg/dL (NEG-TRACE) Urine Glucose (UA) >=1000 mg/dL (NEG) Urine Ketones (Stick) >=80 mg/dL (NEG) Urine Blood Negative (NEG) Urine Nitrite Negative (NEG) Urine Bilirubin Negative (NEG) Urine Urobilinogen Dipstick 0.2 mg/dL (0.2 mg/dL) Urine Leukocyte Esterase Negative (NEG) Urine RBC Occ /HPF (0-2) Urine WBC 1-4 /HPF (0-4) Urine Squamous Epithelial Cells Few /LPF Urine Bacteria Few /HPF (0-FEW) Urine Mucus Slight /LPF Test 8/12/17 20:45 09/23/16 20:48 09/23/16 21:21 09/23/16 22:17 Sodium Level 136 mmol/L (136-145) Potassium Level 2.7 mmol/L (3.5-5.1) Chloride Level 102 mmol/L (98-107) Carbon Dioxide Level 20 mmol/L (21-32) Anion Gap 14 (6-14) Blood Urea Nitrogen 15 mg/dL (8-26) Creatinine 1.6 mg/dL (0.7-1.3) Estimated GFR (Cockcroft-Gault) 50.0 Glucose Level 245 mg/dL (70-99) Calcium Level 7.9 mg/dL (8.5-10.1) Glucose (Fingerstick) 151 mg/dL (70-99) 232 mg/dL (70-99) 230 mg/dL (70-99) Test 09/23/16 22:45 09/23/16 23:21 09/24/16 00:25 09/24/16 00:45 Sodium Level 139 mmol/L (136-145) 140 mmol/L (136-145) Potassium Level 2.8 mmol/L (3.5-5.1) 3.1 mmol/L (3.5-5.1) Chloride Level 105 mmol/L (98-107) 107 mmol/L (98-107) Carbon Dioxide Level 23 mmol/L (21-32) 23 mmol/L (21-32) Anion Gap 11 (6-14) 10 (6-14) Blood Urea Nitrogen 13 mg/dL (8-26) 12 mg/dL (8-26) Creatinine 1.7 mg/dL (0.7-1.3) 1.5 mg/dL (0.7-1.3) Estimated GFR (Cockcroft-Gault) 46.6 53.9 Glucose Level 223 mg/dL (70-99) 154 mg/dL (70-99) Calcium Level 7.8 mg/dL (8.5-10.1) 7.5 mg/dL (8.5-10.1) Glucose (Fingerstick) 158 mg/dL (70-99) 156 mg/dL (70-99) Phosphorus Level 2.6 mg/dL (2.6-4.7) Magnesium Level 1.6 mg/dL (1.8-2.4) Test 09/24/16 03:00 09/24/16 03:16 09/24/16 05:00 09/24/16 06:40 Sodium Level 140 mmol/L (136-145) 140 mmol/L (136-145) 142 mmol/L (136-145) Potassium Level 3.2 mmol/L (3.5-5.1) 3.2 mmol/L (3.5-5.1) 2.8 mmol/L (3.5-5.1) Chloride Level 109 mmol/L (98-107) 109 mmol/L (98-107) 111 mmol/L (98-107) Carbon Dioxide Level 23 mmol/L (21-32) 20 mmol/L (21-32) 20 mmol/L (21-32) Anion Gap 8 (6-14) 11 (6-14) 11 (6-14) Blood Urea Nitrogen 10 mg/dL (8-26) 10 mg/dL (8-26) 8 mg/dL (8-26) Creatinine 1.4 mg/dL (0.7-1.3) 1.3 mg/dL (0.7-1.3) 1.2 mg/dL (0.7-1.3) Estimated GFR (Cockcroft-Gault) 58.4 63.6 69.7 Glucose Level 163 mg/dL (70-99) 159 mg/dL (70-99) 133 mg/dL (70-99) Calcium Level 7.3 mg/dL (8.5-10.1) 7.2 mg/dL (8.5-10.1) 6.8 mg/dL (8.5-10.1) Glucose (Fingerstick) 143 mg/dL (70-99) White Blood Count 7.6 x10^3/uL (4.0-11.0) Red Blood Count 3.19 x10^6/uL (4.30-5.70) Hemoglobin 9.3 g/dL (13.0-17.5) Hematocrit 27.7 % (39.0-53.0) Mean Corpuscular Volume 87 fL (79-100) Mean Corpuscular Hemoglobin 29 pg (25-35) Mean Corpuscular Hemoglobin Concent 34 g/dL (31-37) Red Cell Distribution Width 13.4 % (11.5-14.5) Platelet Count 146 x10^3/uL (140-400) Neutrophils (%) (Auto) 63 % (31-73) Lymphocytes (%) (Auto) 26 % (24-48) Monocytes (%) (Auto) 9 % (0-9) Eosinophils (%) (Auto) 1 % (0-3) Basophils (%) (Auto) 0 % (0-3) Neutrophils # (Auto) 4.8 x10^3uL (1.8-7.7) Lymphocytes # (Auto) 2.0 x10^3/uL (1.0-4.8) Monocytes # (Auto) 0.7 x10^3/uL (0.0-1.1) Eosinophils # (Auto) 0.1 x10^3/uL (0.0-0.7) Basophils # (Auto) 0.0 x10^3/uL (0.0-0.2) Test 09/24/16 08:17 09/24/16 12:25 09/24/16 12:53 09/24/16 17:43 Glucose (Fingerstick) 135 mg/dL (70-99) 127 mg/dL (70-99) 146 mg/dL (70-99) Potassium Level 3.2 mmol/L (3.5-5.1) Test 09/24/16 20:53 09/25/16 07:10 Glucose (Fingerstick) 95 mg/dL (70-99) 89 mg/dL (70-99) Laboratory Tests Test 09/24/16 12:25 09/24/16 12:53 09/24/16 17:43 09/24/16 20:53 Potassium Level 3.2 mmol/L (3.5-5.1) Glucose (Fingerstick) 127 mg/dL (70-99) 146 mg/dL (70-99) 95 mg/dL (70-99) Test 09/25/16 07:10 Glucose (Fingerstick) 89 mg/dL (70-99) Brief Hospital Course Mr. Hammond is a 31 old male, no employment, DM type 1 x 12 yrs now, no PCP, on unknown dose insulin admitted to ICU for DKA. Stayed 2 days , better with the ff regimen: levemir 20 qhs and novolog 10 TID, Emphasized compliance, DOubt this as he seems less interested and maybe uneducated with no finances, Chance of readmission, high probability Pt seen and examined Dc 31 mins > 50% education Discharge Information Condition at Discharge: Improved, Stable Follow Up: Weeks (PCP 4 weeks) Disposition/Orders: D/C to Home BAHMAN KURTZ MD Sep 25, 2016 09:01
== END 2016-09-25 16:13 | disposition home or self-care (01) | DRG 682 ==
LOC: ER 18:00 → 1 WEST ICU 19:27 → 6 SOUTH 09-24 20:57
PROVIDERS: ADMIT Internal Medicine; ATTEND Internal Medicine
DX: N17.9 Acute kidney failure, unspecified (principal); E10.10 Type 1 diabetes mellitus with ketoacidosis without coma; E44.1 Mild protein-calorie malnutrition; N18.3 Chronic kidney disease, stage 3 (moderate); E87.6 Hypokalemia; Z79.4 Long term (current) use of insulin; Z91.14 Patient's other noncompliance with medication regimen; Z83.3 Family history of diabetes mellitus
CPT/HCPCS: 36415; 80048; 80053; 81001; 82962; 83036; 83690; 83735; 84100; 84132; 84484; 85025; 93005; 96361; 96374; J1815; J2405; J2543; J3010; J3475; J3480; J7030; J7042; 99291-25

== ENCOUNTER 2016-11-16 14:54 | Emergency (ER) | payer SELFPAY ==
[~2016-11-16] VITALS: Ht 182.9 cm; Wt 59.0 kg
[~2016-11-16 14:54] MED LIST: INSU100I17 SQ; INSU100V13 SQ
[2016-11-16] MEDS ORDERED: IV NORMAL SALINE 1000ML BAG 1,000 ML IV SCH ×2 (15:39→18:46)
[2016-11-16] MEDS ORDERED: ONDANSETRON PF 4 MG/2 ML VIAL. IV ONE (15:45)
[2016-11-16] MEDS ORDERED: KETOROLAC 30 MG/ML INJ. IV ONE (15:45)
[2016-11-16 15:47] LABS: BASO # 0.1 x10^3/uL (0.0-0.2); BASO % 1 % (0-3); EOS % 0 % (0-3); HEMATOCRIT 37.1 % (39.0-53.0); HEMOGLOBIN 12.4 g/dL (13.0-17.5); LYMPH # 1.6 x10^3/uL (1.0-4.8); LYMPH % 18 % (24-48); MEAN CORPUSCULAR HEMOGLOBIN 29 pg (25-35); MEAN CORPUSCULAR HGB CONC 33 g/dL (31-37); MEAN CORPUSCULAR VOLUME 88 fL (79-100); MONO % 4 % (0-9); NEUT % 77 % (31-73); PLATELET COUNT 350 x10^3/uL (140-400); RED BLOOD COUNT 4.23 x10^6/uL (4.30-5.70); RED CELL DISTRIBUTION WIDTH 14.3 % (11.5-14.5); WHITE BLOOD COUNT 9.3 x10^3/uL (4.0-11.0)
[2016-11-16 15:53] LABS: BILIRUBIN,URINE NEGATIVE (NEG); GLUCOSE,URINE >=1000 mg/dL (NEG); NITRITE,URINE NEGATIVE (NEG); PROTEIN,URINE NEGATIVE (NEG-TRACE); UROBILINOGEN,URINE 0.2 mg/dL (0.2 mg/dL)
[2016-11-16 15:56] LABS: BARBITURATES NEG (NEG); BENZODIAZEPINES NEG (NEG); CANNABINOIDS NEG (NEG); COCAINE NEG (NEG); METHADONE NEG (NEG); OPIATES NEG (NEG); PHENCYCLIDINE NEG (NEG)
[2016-11-16 15:58] LABS: CALCIUM 10.1 mg/dL (8.5-10.1); CREATININE 1.8 mg/dL (0.7-1.3); GFR 43.7
[2016-11-16 16:04] LABS: ALBUMIN 3.2 g/dL (3.4-5.0); ALBUMIN/GLOBULIN RATIO 0.6 (1.0-1.7); TOTAL BILIRUBIN 0.4 mg/dL (0.2-1.0); TOTAL PROTEIN 8.5 g/dL (6.4-8.2)
[2016-11-16 16:10] LABS: BACTERIA,URINE FEW /HPF (0-FEW); YEAST,URINE PRESENT /HPF
--- NOTE | 2016-11-16 16:15 | ED.ADGEN ---
Past Medical History Past Medical History: Diabetes-Type I, Diabetes-Type II Past Surgical History: No Surgical History Alcohol Use: None Drug Use: None Adult General Chief Complaint Chief Complaint: ABDOMINAL PAIN HPI HPI Patient is a 31 year old [man, history of type 2 diabetes mellitus, insulin controlled, who presents to the emergency department with a complaint of 3 days of abdominal pain located in the mid and lower abdomen, associated with nausea, vomiting, and diarrhea. Patient is primarily Malay speaking, translation is assisted by family at bedside at patient's request. Patient denies any blood in emesis or stool, states that for episodes of emesis and stool today. States it is loose brown stool, and food and fluid. Patient denies any injuries, any recent travel or previous surgery, states he occasionally does have swelling extremities, denies any rashes, denies any sore throat, chest pain, shortness breath. States that yesterday he was feeling "hot and cold". He follows with a healthcare clinic. He denies any ingestions or sick contact exposures. No urinary complaints, no discharge or drainage. Review of Systems Review of Systems Constitutional: Subjective fevers and chills. Eyes: Denies change in visual acuity. [] HENT: Denies nasal congestion or sore throat. [] Respiratory: Denies cough or shortness of breath. [] Cardiovascular: Denies chest pain or edema. [] GI: Lower and mid abdominal pain, nausea, vomiting, diarrhea, no bloody stools or bloody emesis. : Denies dysuria. [] Musculoskeletal: Denies back pain or joint pain. [] Integument: Denies rash. [] Neurologic: Denies headache, focal weakness or sensory changes. [] Endocrine: Denies polyuria or polydipsia. [] Lymphatic: Denies swollen glands. [] Psychiatric: Denies depression or anxiety. [] Current Medications Current Medications Current Medications Medications (Trade) Dose Ordered Sig/Ora Start Time Stop Time Status Last Admin Dose Admin Ceftriaxone Sodium 50 ml @ 100 mls/hr 1X ONCE 11/16/16 18:15 11/16/16 18:44 DC 11/16/16 19:07 100 MLS/HR Dextrose/Sodium Chloride 1,000 ml @ 250 mls/hr Q4H 11/16/16 18:49 Fentanyl Citrate (Fentanyl 2ml Vial) 25 mcg PRN Q15MIN PRN 11/16/16 19:15 11/17/16 19:14 Insulin Human Regular 150 ml @ 0 mls/hr 1X ONCE 11/16/16 19:00 11/16/16 19:01 DC Insulin Human Regular 150 unit/ Sodium Chloride 151.5 ml @ 0 mls/hr CONT PRN PRN 11/16/16 19:00 Ketorolac Tromethamine (Toradol) 10 mg 1X ONCE 11/16/16 15:45 11/16/16 15:46 DC 11/16/16 16:00 10 MG Lidocaine HCl (Glydo (Lidocaine) Jelly) 6 conner STK-MED ONCE 11/16/16 17:47 11/16/16 17:48 DC Ondansetron HCl (Zofran) 4 mg 1X ONCE 11/16/16 15:45 11/16/16 15:46 DC 11/16/16 16:00 4 MG Potassium Chloride (KCl Oral Soln) 40 meq 1X ONCE 11/16/16 19:15 11/16/16 19:16 DC 11/16/16 19:36 40 MEQ Sodium Chloride 1,000 ml @ 250 mls/hr Q4H 11/16/16 18:49 Allergies Allergies Allergies Coded Allergies Type Severity Reaction Last Updated Verified No Known Drug Allergies 09/23/16 No Physical Exam Physical Exam Constitutional: Well developed, thin, appears uncomfortable, ill in appearance. [] HENT: Normocephalic, atraumatic, bilateral external ears normal, oropharynx moist, no oral exudates, nose normal. [] Eyes: PERRLA, EOMI, conjunctiva normal, no discharge. [] Neck: Normal range of motion, no tenderness, supple, no stridor. [] Cardiovascular:Heart rate regular rhythm, no murmur, S1, S2, rubs or gallops. [] Lungs & Thorax: Bilateral breath sounds clear to auscultation, no wheezing, rhonchi, rales. No chest wall crepitus or tenderness. [] Abdomen: Bowel sounds normal, soft, tenderness to palpation in the mid and lower abdomen, mild voluntary guarding, no rebound or rigidity, abdomen is mildly distended, with palpable mass extending to nearly umbilicus, concern for distended bladder, no pulsatile masses. [] Skin: Warm, dry, no erythema, no rash. [Patient has healing lesions noted on the right lower extremity, most consistent with insect bites, no evidence of coalescing rash or other lesions. Back: No tenderness, no CVA tenderness. [] Extremities: No tenderness, no cyanosis, no clubbing, ROM intact, no edema. Negative Homans sign.[] Neurologic: Alert and oriented X 3, normal motor function, normal sensory function, no focal deficits noted. [] Psychologic: Affect normal, judgement normal, mood normal. [] examination: Patient is uncircumcised, with ecchymosis, mild swelling noted at the meatus and the opening of the foreskin, no injury identified, no evidence of acute cellulitis or abscess formation, unable to fully retract foreskin as stated, Scott catheter was placed, did require several attempts, they catheter was used. Patient immediately became draining large amount of clear urine with a small amount of sediment. Over 2300 mL of urine out in the first hour. Current Patient Data Vital Signs Vital Signs Date Time Temp Pulse Resp B/P (MAP) Pulse Ox O2 Delivery O2 Flow Rate FiO2 11/16/16 18:50 78 20 109/68 (82) 99 Room Air 11/16/16 15:18 97.7 97.7 Lab Values Laboratory Tests Test 11/16/16 15:18 11/16/16 15:19 11/16/16 15:30 11/16/16 15:35 Glucose (Fingerstick) 382 mg/dL (70-99) H Lactic Acid Level 3.2 mmol/L (0.4-2.0) H Magnesium Level 2.2 mg/dL (1.8-2.4) White Blood Count 9.3 x10^3/uL (4.0-11.0) Red Blood Count 4.23 x10^6/uL (4.30-5.70) L Hemoglobin 12.4 g/dL (13.0-17.5) L Hematocrit 37.1 % (39.0-53.0) L Mean Corpuscular Volume 88 fL (79-100) Mean Corpuscular Hemoglobin 29 pg (25-35) Mean Corpuscular Hemoglobin Concent 33 g/dL (31-37) Red Cell Distribution Width 14.3 % (11.5-14.5) Platelet Count 350 x10^3/uL (140-400) # Neutrophils (%) (Auto) 77 % (31-73) H Lymphocytes (%) (Auto) 18 % (24-48) L Monocytes (%) (Auto) 4 % (0-9) Eosinophils (%) (Auto) 0 % (0-3) Basophils (%) (Auto) 1 % (0-3) Neutrophils # (Auto) 7.2 x10^3uL (1.8-7.7) Lymphocytes # (Auto) 1.6 x10^3/uL (1.0-4.8) Monocytes # (Auto) 0.4 x10^3/uL (0.0-1.1) Eosinophils # (Auto) 0.0 x10^3/uL (0.0-0.7) Basophils # (Auto) 0.1 x10^3/uL (0.0-0.2) Urine Collection Type Unknown Urine Color Yellow Urine Clarity Clear Urine pH 6.0 Urine Specific [place] 1.020 Urine Protein Negative mg/dL (NEG-TRACE) Urine Glucose (UA) >=1000 mg/dL (NEG) Urine Ketones (Stick) 40 mg/dL (NEG) Urine Blood Negative (NEG) Urine Nitrite Negative (NEG) Urine Bilirubin Negative (NEG) Urine Urobilinogen Dipstick 0.2 mg/dL (0.2 mg/dL) Urine Leukocyte Esterase Small (NEG) Urine RBC 3-5 /HPF (0-2) Urine WBC 5-10 /HPF (0-4) Urine Bacteria Few /HPF (0-FEW) Urine Yeast Present /HPF Sodium Level 135 mmol/L (136-145) L Potassium Level 3.0 mmol/L (3.5-5.1) L Chloride Level 97 mmol/L (98-107) L Carbon Dioxide Level 18 mmol/L (21-32) L Anion Gap 20 (6-14) H Blood Urea Nitrogen 9 mg/dL (8-26) Creatinine 1.8 mg/dL (0.7-1.3) H Estimated GFR (Cockcroft-Gault) 43.7 BUN/Creatinine Ratio 5 (6-20) L Glucose Level 378 mg/dL (70-99) H Calcium Level 10.1 mg/dL (8.5-10.1) Phosphorus Level 3.2 mg/dL (2.6-4.7) Total Bilirubin 0.4 mg/dL (0.2-1.0) Aspartate Amino Transferase (AST) 16 U/L (15-37) Alanine Aminotransferase (ALT) 22 U/L (16-63) Alkaline Phosphatase 126 U/L (46-116) H Total Protein 8.5 g/dL (6.4-8.2) H Albumin 3.2 g/dL (3.4-5.0) L Albumin/Globulin Ratio 0.6 (1.0-1.7) L Lipase 303 U/L (73-393) Urine Opiates Screen Neg (NEG) Urine Methadone Screen Neg (NEG) Urine Barbiturates Neg (NEG) Urine Phencyclidine Screen Neg (NEG) Urine Amphetamine/Methamphetamine Neg (NEG) Urine Benzodiazepines Screen Neg (NEG) Urine Cocaine Screen Neg (NEG) Urine Cannabinoids Screen Neg (NEG) Urine Ethyl Alcohol Neg (NEG) Test 11/16/16 18:19 11/16/16 19:15 11/16/16 20:01 11/16/16 20:40 POC Hemoglobin 10.2 g/dL (14-18) L POC Hematocrit 30 % (37-52) L POC Sodium 139 mmol/L (135-145) POC Potassium 3.0 mmol/L (3.5-5.0) L POC Chloride 106 mmol/L (98-110) POC Total CO2 20 mmol/L (23-32) L Anion Gap 17 mmol/L (6-14) H 8 (6-14) POC Blood Urea Nitrogen 5 mg/dL (8-26) L POC Creatinine 0.7 mg/dL (0.5-1.4) Glucose Level 157 mg/dL (70-99) H 134 mg/dL (70-99) H POC Ionized Calcium (Nova) 1.29 mmol/L (1.13-1.32) Sodium Level 139 mmol/L (136-145) Potassium Level 3.1 mmol/L (3.5-5.1) L Chloride Level 106 mmol/L (98-107) Carbon Dioxide Level 25 mmol/L (21-32) Blood Urea Nitrogen 7 mg/dL (8-26) L Creatinine 1.3 mg/dL (0.7-1.3) Estimated GFR (Cockcroft-Gault) 63.6 Calcium Level 8.5 mg/dL (8.5-10.1) Glucose (Fingerstick) 135 mg/dL (70-99) H Lactic Acid Level 1.1 mmol/L (0.4-2.0) Laboratory Tests 11/16/16 15:35 Laboratory Tests 11/16/16 15:35 11/16/16 18:19 11/16/16 19:15 EKG EKG ECG: Rhythm strip: Heart rate 74 bpm, sinus rhythm, no ectopy. As interpreted by me.[] EC: Sinus rhythm, heart rate 74 beats are minute, upright axis, QTC is 478, OK 122, QRS 96, no ST elevations or depressions, and evidence of acute ST abnormalities. As interpreted by me. Radiology/Procedures Radiology/Procedures [][facility] [address] [facility] [place], [place] [id number] IMAGING REPORT Signed PATIENT: THEA DONALDSON ACCOUNT: [id number] : 1985 LOCATION: ER AGE: 31 SEX: M EXAM STATUS: REG ER ORD. PHYSICIAN: JORDYN KUHN DO REASON: abd pain/n/v/d PROCEDURE: CT ABDOMEN PELVIS WO CONTRAST CT abdomen/pelvis of indication: Type I diabetic, abdominal pain and nausea and vomiting diarrhea for 3 days Technique: CT abdomen/pelvis without IV contrast with multiplanar reformats. Comparison: None Findings: Limited study due to lack of IV contrast. Heart is normal in size. No pericardial or pleural effusion. Triangular opacity seen in the right middle lobe and right lower lobe measuring 3 mm. Noncontrast appearance of the liver, spleen, gallbladder, pancreas, adrenals is within normal limits. Bladder is severely distended measuring 22 cm in craniocaudal dimension. Bilateral moderate hydronephrosis. Small sliding hilar hernia. No bowel obstruction. Prostate and seminal vesicles show no mass lesions. Enlarged bilateral inguinal lymph nodes noted, the largest on the right measuring 1.3 x 1.1 cm. No free pelvic fluid. Superficial anterior abdominal wall midline skin defect noted. Inflammatory changes seen along the visualized left upper thigh. No suspicious bony lesion. Impression: Limited study due to lack of IV contrast. 1. Markedly distended bladder with bilateral hydronephrosis likely from reflux. Clinically correlate with bladder outlet obstruction. 2. No bowel obstruction. 3. Bilateral inguinal lymph nodes likely reactive. 4. Triangular opacity within the right middle lobe and right lower lobe, nonspecific. Nonemergent CT chest recommended for correlation of additional nodules. Findings discussed with Dr. Kuhn (ER physician) on 11/16/2016 at 4:57 PM. PQRS Compliance Statement: One or more of the following individualized dose reduction techniques were utilized for this examination: 1. Automated exposure control 2. Adjustment of the mA and/or kV according to patient size 3. Use of iterative reconstruction technique DICTATED and SIGNED BY: GILLES CALLES DO DATE: 11/16/16 9390 CC: JORDYN KUHN DO; NO PCP ~ Course & Med Decision Making Course & Med Decision Making Pertinent Labs and Imaging studies reviewed. (See chart for details) Patient appears uncomfortable, ill in appearance. Abdominal examination reveals appears to be a palpable bladder. CT of the abdomen and pelvis obtained, laboratory studies. CT reveals a and extremely distended bladder, with no evidence of obvious obstruction, patient also noted to have hydronephrosis consistent with bowel obstruction. I did speak with the radiologist, no evidence of masses, enlarged prostate, or other concerning findings. Examination of the patient's genitals reveals phimosis, no evidence of acute infection or other maladies identified, unable to retract foreskin as stated, Scott coud catheter was placed, did require several attempts, with a large amount of clear yellow urine draining, with immediate improvement of patient's symptoms. Patient initially noted to have a glucose of 378, with an anion gap of 20, potassium of 3.0, and a bicarbonate of 18. Patient with a lactic acidosis of 3.2, evidence of significant dehydration, I do believe the symptoms are all consistent with the patient's bladder obstruction. Patient received several liters of fluid in the ED, repeat glucose was 157, anion gap of 17. He is resting much more complaint this time. More than 2300 mL's of urine out, patient with bacteria and white blood cells noted and urine, was initiated and ceftriaxone. I did discuss findings as above with patient via language line tool hardener, with family at bedside at patient's request, patient is agreeable for admission for continued management and treatment, understands as we do not have urology coverage the transfer would be most appropriate for additional evaluation, which was initiated after discussion with hospitalist at [facility], Dr. Ennis. I spoke with Dr. Leung, hospitalist on-call at [facility], we did discuss laboratory studies and examination findings. Sent patient is resting comfortably, with Scott catheter in place. As patient still has an anion gap, I did initiate the DKA protocol, but as stated, I believe the patient's symptoms are more consistent with dehydration and distress secondary to his bladder outlet obstruction, therefore although DKA protocol was ordered in the ED, including potassium supplementation , both oral and IV, and additional IV fluids administered, patient's repeat laboratory studies revealed an anion gap closed at 8, with a glucose of 135, CO2 of 25, creatinine of 1.3, and a potassium of 3.1, therefore the insulin drip was not initiated. Repeat lactic is normalized at 1.1. Updated report was given to nursing staff at [facility] by nurse Louis. Patient remained stable on the monitor, heart rate of 79, blood pressure pressure of 114/85, resting comfortable, awaiting transport to [facility]. Dragon Disclaimer Dragon Disclaimer This electronic medical record was generated, in whole or in part, using a voice recognition dictation system. Departure Impression: Primary Impression: Bladder outlet obstruction Additional Impressions: Lactic acidosis Ketosis Type 2 diabetes mellitus Disposition: 05 TRANSFER OTHER Condition: IMPROVED Problem Qualifiers JORDYN KUHN DO Nov 16, 2016 16:15
[2016-11-16] MEDS ORDERED: IV NORMAL SALINE 1000ML BAG 1,000 ML IV ONE (16:45)
--- NOTE | 2016-11-16 17:00 | RAD ---
CT abdomen/pelvis of indication: Type I diabetic, abdominal pain and nausea and vomiting diarrhea for 3 days Technique: CT abdomen/pelvis without IV contrast with multiplanar reformats. Comparison: None Findings: Limited study due to lack of IV contrast. Heart is normal in size. No pericardial or pleural effusion. Triangular opacity seen in the right middle lobe and right lower lobe measuring 3 mm. Noncontrast appearance of the liver, spleen, gallbladder, pancreas, adrenals is within normal limits. Bladder is severely distended measuring 22 cm in craniocaudal dimension. Bilateral moderate hydronephrosis. Small sliding hilar hernia. No bowel obstruction. Prostate and seminal vesicles show no mass lesions. Enlarged bilateral inguinal lymph nodes noted, the largest on the right measuring 1.3 x 1.1 cm. No free pelvic fluid. Superficial anterior abdominal wall midline skin defect noted. Inflammatory changes seen along the visualized left upper thigh. No suspicious bony lesion. Impression: Limited study due to lack of IV contrast. 1. Markedly distended bladder with bilateral hydronephrosis likely from reflux. Clinically correlate with bladder outlet obstruction. 2. No bowel obstruction. 3. Bilateral inguinal lymph nodes likely reactive. 4. Triangular opacity within the right middle lobe and right lower lobe, nonspecific. Nonemergent CT chest recommended for correlation of additional nodules. Findings discussed with Dr. Hoover (ER physician) on 11/16/2016 at 4:57 PM. PQRS Compliance Statement: One or more of the following individualized dose reduction techniques were utilized for this examination: 1. Automated exposure control 2. Adjustment of the mA and/or kV according to patient size 3. Use of iterative reconstruction technique
[2016-11-16] MEDS ORDERED: LIDOCAINE 2% JELLY 6ML IN APPLICATOR. ONE (17:47)
[2016-11-16] MEDS ORDERED: IV 1/2 NORMAL SALINE 1,000 ML IV SCH (18:49)
[2016-11-16] MEDS ORDERED: IV DEXTROSE 5 %-0.45 % NACL 1,000 ML IV SCH (18:49)
[2016-11-16] MEDS ORDERED: INSULIN,REGULAR 150 UNIT DRIP 150 ML IV ONE (19:00)
[2016-11-16] MEDS ORDERED: POTASSIUM CHLORIDE 10MEQ 100 ML IV PRN ×2 (19:00)
[2016-11-16] MEDS ORDERED: INSULIN REGULAR VIAL 150 UNIT in 0.9 % SODIUM CHLORIDE 150ML 150 ML IV PRN (19:00)
[2016-11-16] MEDS ORDERED: fentaNYL PF VIAL 100 MCG/2 ML VIAL IV PRN (19:15)
[2016-11-16] MEDS ORDERED: POTASSIUM CHLORIDE 20 MEQ/15 ML ORAL LIQUID. PO ONE (19:15)
[2016-11-16] MEDS: POTASSIUM CHLORIDE 10MEQ 100 ML IV PRN ×2 (19:38→20:53)
[2016-11-16 20:15] LABS: CALCIUM 8.5 mg/dL (8.5-10.1); CREATININE 1.3 mg/dL (0.7-1.3); GFR 63.6; POTASSIUM 3.1 mmol/L (3.5-5.1)
[2016-11-16 20:30] VITALS: BP 108/79
--- NOTE | 2016-11-17 06:51 | EKG ---
[facility] [address] [place] [address] Test Date: 2016-11-16 Test Time: 19:16:24 Pat Name: THEA DONALDSON Department: Room: Gender: M Progressive Care Nurse: : 1985 Requested By: JORDYN KUHN Order Number: [id number] Reading MD: Measurements Intervals [place] Rate: 74 P: 90 IN: 122 QRS: 26 QRSD: 96 T: 54 QT: 430 QTc: 478 Interpretive Statements SINUS RHYTHM PROLONGED QT RI6.01 Unconfirmed report No previous ECG available for comparison
== END 2016-11-16 22:14 | disposition short-term general hospital (02) ==
LOC: ER 14:54
DX: N32.0 Bladder-neck obstruction (principal); E87.2 Acidosis; E86.0 Dehydration; E88.89 Other specified metabolic disorders; E11.9 Type 2 diabetes mellitus without complications; N47.1 Phimosis; Z79.4 Long term (current) use of insulin
CPT/HCPCS: 36415; 51702; 74176; 80047; 80048; 80053; 80307; 81001; 82962; 83605; 83690; 83735; 84100; 85025; 87086; 93005; 96360; 96361; 96365; 96375; 99285; J0690; J1885; J2405; J3480; J7030; G0479